=== PATIENT | female | born 1990 | race Native Hawaiian/Other Pacific Islander ===

== ENCOUNTER 2019-04-23 09:35 | Emergency (ER) | payer SELFPAY ==
[2019-04-23 09:56] VITALS: BP 113/77
--- NOTE | 2019-04-23 16:00 | Ultrasound Report ---
COMPLETE RIGHT BREAST ULTRASOUND HISTORY: 28-year-old with a painful swollen left breast with an inverted nipple. She states that she has had symptoms for one year. COMPARISON: None. FINDINGS: Ultrasound of all 4 quadrants and the retroareolar area was performed. The breast is diffus batsheva abnormal with pronounced skin thickening and extensive hypoechoic fluid versus solid mass which m ay all interconnect. The technologist measured the most prominent collection which is described as be ing retroareolar and measuring 6.7 x 5.2 x 6.7 cm. No air is identified. IMPRESSION: A grossly abnormal right breast with pronounced skin thickening and multiple masses versus fluid khadar ections which are suspicious for mastitis with extensive abscess. However, tumor cannot be excluded. Recommend clinical evaluation by a breast surgeon and needle aspiration/biopsy of one or more sites. BIRADS 4: Suspicious abnormality. Signer Name: Miguel Ángel Holland MD Signed: 04/23/2019 3:55 PM Workstation Name: [id number]
[2019-04-23 16:44] LABS: Basophils % (Auto) 0.5 % (0.0-1.8); Eosinophils # (Auto) 0.4 K/mm3 (0.0-0.4); Eosinophils % (Auto) 4.5 % (0.0-4.3); Hematocrit 36.8 % (30.3-42.9); Lymphocytes # (Auto) 2.1 K/mm3 (1.2-5.4); Lymphocytes % (Auto) 22.7 % (13.4-35.0); Mean Corpuscular HGB Conc 33 % (30-34); Mean Corpuscular Volume 77 fl (79-97); Monocytes # (Auto) 0.3 K/mm3 (0.0-0.8); Monocytes % (Auto) 3.6 % (0.0-7.3); Platelet Count 296 K/mm3 (140-440); Red Blood Count 4.81 M/mm3 (3.65-5.03); Red Cell Distribution Width 16.3 % (13.2-15.2)
[2019-04-23 17:12] LABS: Albumin 3.9 g/dL (3.9-5); BUN/Creatinine Ratio 24; Blood Urea Nitrogen 12 mg/dL (7-17); Calcium 8.9 mg/dL (8.4-10.2); Hemolysis Index 95
[2019-04-23 17:42] LABS: Alanine Aminotransferase 13 units/L (7-56)
--- NOTE | 2019-04-23 18:10 | Emergency Department Report ---
ED General Adult HPI - General Chief complaint: Urogenital-Female Stated complaint: RT SIDE BREAST SWELLING/PAIN Time Seen by Provider: 04/23/19 13:51 Source: patient Mode of arrival: Ambulatory Limitations: No Limitations - History of Present Illness Initial comments: 28-year-old female who since with complaints of right breast pain and swelling intermittently 1 year. Patient states this also occurs on her left breast and she has had her left breast evaluated at [facility]-patient is unsure if a biopsy was performed. She denies any abnormal weight loss or fevers. She states that she uses ibuprofen to control the pain and swelling. She admits to previously being on antibiotics for mastitis. She denies any family history of breast cancer. Patient admits to right nipple retraction 3 months. She denies any drainage from the breast or nipple. - Related Data Previous Rx's Medication Instructions Recorded Last Taken Type Sulfamethoxazole/Trimethoprim 1 each PO BID #20 tablet 04/23/19 Unknown Rx [Bactrim DS TAB] Allergies Allergy/AdvReac Type Severity Reaction Status Date / Time No Known Allergies Allergy Unverified 04/23/19 09:55 ED Review of Systems ROS: Stated complaint: RT SIDE BREAST SWELLING/PAIN Other details as noted in HPI Comment: All other systems reviewed and negative Skin: as per HPI ED Past Medical Hx - Past Medical History Previous Medical History?: No - Surgical History Past Surgical History?: Yes Hx Appendectomy: Yes - Medications Home Medications: Home Medications Medication Instructions Recorded Confirmed Last Taken Type Sulfamethoxazole/Trimethoprim 1 each PO BID #20 tablet 04/23/19 Unknown Rx [Bactrim DS TAB] ED Physical Exam - General Limitations: No Limitations General appearance: alert, in no apparent distress - Head Head exam: Present: atraumatic, normocephalic - Eye Eye exam: Present: normal appearance - Neck Neck exam: Present: normal inspection, full ROM - Respiratory Respiratory exam: Present: normal lung sounds bilaterally. Absent: respiratory distress - Cardiovascular Cardiovascular Exam: Present: regular rate, normal rhythm. Absent: systolic murmur, diastolic murmur, rubs, gallop - Skin Skin exam: Present: warm, dry, intact, erythema, other (right breast is mildly swollen and significantly tender with induration and mild erythema. Nipple is noted to be inverted. Patient has pain in breast with movement of right arm.). Absent: diaphoretic, petechiae ED Course Vital Signs 04/23/19 09:54 Temperature 98.2 F Pulse Rate 63 Respiratory 18 Rate Blood Pressure 113/77 [Right] O2 Sat by Pulse 99 Oximetry ED Medical Decision Making - Lab Data Result diagrams: 04/23/19 16:31 04/23/19 16:31 Lab Results 04/23/19 04/23/19 04/23/19 Range/Units 16:31 16:31 16:31 WBC 9.4 (4.5-11.0) K/mm3 RBC 4.81 (3.65-5.03) M/mm3 Hgb 12.0 (10.1-14.3) gm/dl Hct 36.8 (30.3-42.9) % MCV 77 L (79-97) fl MCH 25 L (28-32) pg MCHC 33 (30-34) % RDW 16.3 H (13.2-15.2) % Plt Count 296 (140-440) K/mm3 Lymph % (Auto) 22.7 (13.4-35.0) % [place] % (Auto) 3.6 (0.0-7.3) % Eos % (Auto) 4.5 H (0.0-4.3) % Baso % (Auto) 0.5 (0.0-1.8) % Lymph # 2.1 (1.2-5.4) K/mm3 [place] # 0.3 (0.0-0.8) K/mm3 Eos # 0.4 (0.0-0.4) K/mm3 Baso # 0.0 (0.0-0.1) K/mm3 Seg Neutrophils % 68.7 (40.0-70.0) % Seg Neutrophils # 6.4 (1.8-7.7) K/mm3 Sodium 140 (137-145) mmol/L Potassium 3.9 (3.6-5.0) mmol/L Chloride 104.1 (98-107) mmol/L Carbon Dioxide 21 L (22-30) mmol/L Anion Gap 19 mmol/L BUN 12 (7-17) mg/dL Creatinine 0.5 L (0.7-1.2) mg/dL Estimated GFR > 60 ml/min BUN/Creatinine Ratio 24 % Glucose 165 H (65-100) mg/dL Lactic Acid 1.70 (0.7-2.0) mmol/L Calcium 8.9 (8.4-10.2) mg/dL Total Bilirubin 0.20 (0.1-1.2) mg/dL AST 20 (5-40) units/L ALT 13 (7-56) units/L Alkaline Phosphatase 85 (35-129) units/L Total Protein 7.2 (6.3-8.2) g/dL Albumin 3.9 (3.9-5) g/dL Albumin/Globulin Ratio 1.2 % HCG, Quant (0-4) mIU/mL 04/23/19 Range/Units 16:31 WBC (4.5-11.0) K/mm3 RBC (3.65-5.03) M/mm3 Hgb (10.1-14.3) gm/dl Hct (30.3-42.9) % MCV (79-97) fl MCH (28-32) pg MCHC (30-34) % RDW (13.2-15.2) % Plt Count (140-440) K/mm3 Lymph % (Auto) (13.4-35.0) % [place] % (Auto) (0.0-7.3) % Eos % (Auto) (0.0-4.3) % Baso % (Auto) (0.0-1.8) % Lymph # (1.2-5.4) K/mm3 [place] # (0.0-0.8) K/mm3 Eos # (0.0-0.4) K/mm3 Baso # (0.0-0.1) K/mm3 Seg Neutrophils % (40.0-70.0) % Seg Neutrophils # (1.8-7.7) K/mm3 Sodium (137-145) mmol/L Potassium (3.6-5.0) mmol/L Chloride (98-107) mmol/L Carbon Dioxide (22-30) mmol/L Anion Gap mmol/L BUN (7-17) mg/dL Creatinine (0.7-1.2) mg/dL Estimated GFR ml/min BUN/Creatinine Ratio % Glucose (65-100) mg/dL Lactic Acid (0.7-2.0) mmol/L Calcium (8.4-10.2) mg/dL Total Bilirubin (0.1-1.2) mg/dL AST (5-40) units/L ALT (7-56) units/L Alkaline Phosphatase (35-129) units/L Total Protein (6.3-8.2) g/dL Albumin (3.9-5) g/dL Albumin/Globulin Ratio % HCG, Quant < 2 (0-4) mIU/mL - Radiology Data Radiology results: report reviewed COMPLETE RIGHT BREAST ULTRASOUND HISTORY: 28-year-old with a painful swollen left breast with an inverted nipple. She states that she has had symptoms for one year. COMPARISON: None. FINDINGS: Ultrasound of all 4 quadrants and the retroareolar area was performed. The breast is diffusely abnormal with pronounced skin thickening and extensive hypoechoic fluid versus solid mass which may all interconnect. The technologist measured the most prominent collection which is described as being retroareolar and measuring 6.7 x 5.2 x 6.7 cm. No air is identified. IMPRESSION: A grossly abnormal right breast with pronounced skin thickening and multiple masses versus fluid collections which are suspicious for mastitis with extensive abscess. However, tumor cannot be excluded. Recommend clinical evaluation by a breast surgeon and needle aspiration/biopsy of one or more sites. BIRADS 4: Suspicious abnormality. - Medical Decision Making 28-year-old female who since with complaints of right breast pain and swelling intermittently 1 year. WBCs are negative. Lactic acid is negative. Pt is afebrile. Nipple is inverted on exam with induration, erythema, and significant tenderness. US shows: IMPRESSION: A grossly abnormal right breast with pronounced skin thickening and multiple masses versus fluid collections which are suspicious for mastitis with extensive abscess. However, tumor cannot be excluded. Recommend clinical evaluation by a breast surgeon and needle aspiration/biopsy of one or more sites. Discussed pt with Dr. Marie, general surgery-recommended to speak with Breast surgeon. Spoke with Dr. Goldsmith, breast surgery-recommends pt follow up in her office tomorrow. Also recommends bactrim DS BID and warm compresses 4x daily. Pt given office number and informed to call office at 8 am sharp. Pt is nontoxic appearing and stable for d/c home. Critical care attestation.: If time is entered above; I have spent that time in minutes in the direct care of this critically ill patient, excluding procedure time. ED Disposition Clinical Impression: Breast swelling, Abnormal ultrasound of breast Disposition: DC-01 TO HOME OR SELFCARE Is pt being admited?: No Condition: Stable Instructions: Breast Mass (ED) Additional Instructions: Dr. Dania Smyth MD [phone] CALL AT 8am TOMORROW Prescriptions: Sulfamethoxazole/Trimethoprim [Bactrim DS TAB] 1 each PO BID #20 tablet
== END 2019-04-23 18:39 | disposition home or self-care (01) ==
LOC: ED 09:35
DX: N64.4 Mastodynia (principal); Z90.49 Acquired absence of other specified parts of digestive tract; Z79.899 Other long term (current) drug therapy
CPT/HCPCS: 36415; 80053; 82140; 84702; 85025; 96365

== ENCOUNTER 2019-04-25 06:00 | Day surgery (SDC) | payer OTHER ==
[2019-04-25] MEDS ORDERED: ONDANSETRON 4 MG/2 ML INJ IV PRN (07:20)
[2019-04-25] MEDS ORDERED: HYDROmorphone 1 MG/1 ML INJ IV PRN (07:20)
--- NOTE | 2019-04-25 07:21 | Anesthesia Day of Surgery ---
Anesthesia Day of Surgery - Day of Surgery Patient Examined: Yes Patient H&P Reviewed: Yes Patient is NPO: Yes
--- NOTE | 2019-04-25 07:26 | Anesthesia Consultation ---
Anesthesia Consult and Med Hx Date of service: 04/25/19 - Airway Anesthetic Teeth Evaluation: Good ROM Head & Neck: Adequate Mental/Hyoid Distance: Adequate Mallampati Class: Class II Intubation Access Assessment: Good - Pre-Operative Health Status ASA Pre-Surgery Classification: ASA1 Proposed Anesthetic Plan: General - Central Nervous System Hx Seizures: Yes
[2019-04-25] MEDS ORDERED: LACTATED RINGERS 1,000 ML IV SCH (08:00)
[2019-04-25] MEDS ORDERED: MIDAZOLAM 2 MG/2 ML INJ IV NR (08:00)
[2019-04-25] MEDS ORDERED: VANCOMYCIN/NS 1 GM/250 ML 1 GM/250 ML BAG IV NR (08:30)
[2019-04-25] MEDS ORDERED: SODIUM CHLORIDE 0.9% IRRIG SOLN 2000 ML IR ONE ×2 (08:33→08:47)
[2019-04-25] MEDS ORDERED: NEOMY 40 MG/POLYMYXIN B 200,000 UNITS/ML (GU) AMPULE IR ONE (08:47)
--- NOTE | 2019-04-25 09:14 | Short Stay Summary ---
Short Stay Documentation Date of service: 04/25/19 - History H&P: obtained from office - Allergies and Medications Current Medications: Allergies No Known Allergies Allergy (Unverified 10/16/14 15:46) Home Medications Medication Instructions Recorded Confirmed Last Taken Type Famotidine [Pepcid] 20 mg PO BID #30 tablet 10/16/14 04/25/19 Unknown Rx Butalb/Acetamin/Caff 50-325-40 1 tab PO Q8HR PRN #10 tablet 06/15/15 04/25/19 Unknown Rx [Fioricet] levETIRAcetam [Keppra TAB] 500 mg PO BID #60 tablet 06/15/15 04/25/19 04/24/19 20:00 Rx Active Medications Hydromorphone HCl (Dilaudid) 0.5 mg IV Q10MIN PRN PRN Reason: Pain , Severe (7-10) Stop: 04/25/19 23:00 Lactated Ringer's (Lactated Ringers) 1,000 mls @ 100 mls/hr IV DIRECT BEVERLY Vancomycin HCl (Vancomycin/Ns 1 Gm/250 Ml) 1 gm in 250 mls @ 166.667 mls/hr IV PREOP NR; Protocol Stop: 04/25/19 12:00 Midazolam HCl (Versed) 2 mg IV PREOP NR Stop: 04/25/19 23:59 Ondansetron HCl (Zofran) 4 mg IV ONCE PRN PRN Reason: Nausea And Vomiting Stop: 04/25/19 22:00 - Brief post op/procedure progress note Date of procedure: 04/25/19 Pre-op diagnosis: Right breast abscess Post-op diagnosis: same Procedure: Right breast abscess incision and drainage Anesthesia: GETA Findings: Right breast abscess of 9:00 SA with 150 cc of pus drained and breast pulsavac Surgeon: KIMBER GUERRERO Estimated blood loss: minimal Pathology: list (right breast cultures) Specimen disposition: to lab Condition: stable - Disposition Condition at discharge: Good Disposition: DC-01 TO HOME OR SELFCARE Short Stay Discharge Plan Activity: no restrictions, other Diet: regular Wound: keep clean and dry Follow up with: AYAH CANNON MD [Primary Care Provider] - 7 Days KIMBER GUERRERO MD [Staff Physician] - 04/26/19 1:00 am
--- NOTE | 2019-04-25 09:24 | Operative Report ---
Operative Report Operative Report: Date: April 25, 2019 Preoperative diagnosis: Right breast abscess of the SA and upper outer and lower outer quadrants Postoperative diagnosis: Same Procedure: Right breast abscess incision and drainage and Pulsavac Anesthesia: Gen. Surgeon: Dania Smyth M.D. Findings: 150 mL of pus drained from the right breast of the subareolar and upper and lower outer quadrants. Breast was Pulsavac with no residual abscess pockets identified via ultrasound. Cultures taken. Estimated blood loss: Less than 50 mL Complications: None Drains: [place] drain Disposition: PACU in good condition Indications for operative procedure: This is a 28-year-old premenopausal young lady seen yesterday in the office for one-year history of a right breast abscess. Physical exam significant for right breast erythema with abscess involving the upper and lower outer quadrant of the right breast and the subareolar as well. Recent ultrasound performed on 04/23/2019 with findings of the least a 6.7 cm abscess with multiple areas of probable abscess pockets. Aspiration was performed in the office yesterday with 50 mL of pus aspirated and cultures sent. Given the severe amount of pus remaining and extreme breast pain, recommendations were for surgical incision and drainage in the operating room under general anesthesia. Patient wished to proceed with the above procedure. Procedure in detail: The patient was taken to the operating room and was placed supine. Gen. anesthesia was administered. The right breast was prepped and draped in the normal sterile operative fashion. Right breast erythema was noted at the lateral breast with palpable abscess with a symmetry from the 6 to 12:00 positions and also involving the subareolar. Ultrasound was used to identify the area of abscess pockets. A 9:00 periareolar incision was made with 15 blade knife and dissection taken down to subcutaneous tissues. Abscess pocket was encountered with cultures taken and pus was appropriately suctioned and drained. Hemostat was then used to open up additional multiple abscess pockets that were noted of the right upper outer and lower outer quadrants and also the subareolar via ultrasound guidance. Ultrasound was used to ensure no other further pockets of abscess was present. The breast was then Pulsavac with 3 L of irrigation with antibiotic solution. No additional abscess pockets were noted. The breast appeared less inflamed. Stable palpable asymmetry from inflamed tissue was noted of the lateral breast. A Fela drain was then sutured into place and the breast was then packed with iodoform. The breast was appropriately dressed. She was awakened from anesthesia without any complication and transferred to PACU in good condition.
[2019-04-25 09:50] VITALS: BP 111/70
--- NOTE | 2019-04-25 16:47 | Post Anesthesia Evaluation ---
- Post Anesthesia Evaluation Patient Participated: Yes Airway Patent: Yes Stable Respiratory Function: Yes Nausea/Vomiting: No Temp > 96.8F: Yes Pain Manageable: Yes Adequeate Hydration: Yes Anesthesia Complications: No
== END 2019-04-25 06:01 | disposition home or self-care (01) ==
LOC: OR 06:00 → MERGE 07:30
PROVIDERS: ATTEND Surgery
DX: N61.1 Abscess of the breast and nipple (principal); Z79.899 Other long term (current) drug therapy; Z90.49 Acquired absence of other specified parts of digestive tract; Z98.890 Other specified postprocedural states
CPT/HCPCS: 10060; 81025; 87075; 87116; A4217; J3370

== ENCOUNTER 2019-04-25 06:11 | Day surgery (SDC) | payer OTHER ==
[~2019-04-25 06:11] MED LIST: LACTATED RINGERS 1,000 ML IV SCH; MIDAZOLAM 2 MG/2 ML INJ IV NR; ceFAZolin/Water 2 GM/20 ML 2 GM/20 ML SYRINGE IV NR
[2019-04-25] MEDS ORDERED: LIDOCAINE MPF (2%) 20 MG/1 ML VIAL 5 ML ONE (07:46)
[2019-04-25] MEDS ORDERED: PROPOFOL 200 MG/20 ML VIAL IV ONE (07:46)
[2019-04-25] MEDS ORDERED: HYDROmorphone 1 MG/1 ML INJ ONE ×2 (07:46→09:31)
[2019-04-25] MEDS ORDERED: NEOMY 40 MG/POLYMYXIN B 200,000 UNITS/ML (GU) AMPULE IR ONE (08:39)
[2019-04-25] MEDS ORDERED: KETOROLAC 30 MG/1 ML INJ ONE (09:10)
[2019-04-25] MEDS ORDERED: ONDANSETRON 4 MG/2 ML INJ ONE (09:10)
[2019-04-25] MEDS ORDERED: HYDROmorphone 1 MG/1 ML INJ IV PRN (10:19)
[2019-04-25] MEDS ORDERED: ONDANSETRON 4 MG/2 ML INJ IV PRN (10:22)
== END 2019-04-25 06:12 | disposition home or self-care (01) ==
LOC: OR 06:11
PROVIDERS: ATTEND Surgery
DX: N64.4 Mastodynia (principal); N61.1 Abscess of the breast and nipple; Z53.8 Procedure and treatment not carried out for other reasons; Z79.899 Other long term (current) drug therapy; Z90.49 Acquired absence of other specified parts of digestive tract; Z98.890 Other specified postprocedural states
CPT/HCPCS: J1170; J1885; J2250; J2405; J2704; J7120; J0690